=== PATIENT | female | born 1985 | race Caucasian/White ===

== ENCOUNTER 2017-01-06 13:38 | Emergency (ER) | payer OTHER, SELFPAY ==
[2017-01-06] MEDS ORDERED: BENADRYL 50 MG/ML ONE (13:47)
[2017-01-06] MEDS ORDERED: Pepcid 20 MG VIAL IV ONE ×2 (13:47→13:54)
[2017-01-06] MEDS ORDERED: BENADRYL 50 MG/ML IV ONE (13:54)
--- NOTE | 2017-01-06 13:55 | ERPHSYRPT ---
- History of Present Illness Time Seen by Provider: 01/06/17 13:51 Source: patient Exam Limitations: no limitations Patient Subjective Stated Complaint: pt reports taking a new medicine-states she is having trouble breathing-trouble [id number] reports taking the last pill last night-s/s began herminia 1 hr ago Triage Nursing Assessment: pt flushed warm et dry-a & o x 3-resp nonlabored- speaking in complete senenteces with ease-no swelling noted at this time-no salivating noted-pt very anxious upon arrival Physician History: pt reports taking a new medicine-states she is having trouble breathing-trouble [id number] reports taking the last pill last night-s/s began herminia 1 hr ago Timing/Duration: today Associated Symptoms: denies symptoms Allergies/Adverse Reactions: Penicillins Allergy (Verified 01/06/17 13:47) Sulfa (Sulfonamide Antibiotics) Allergy (Verified 01/06/17 13:47) Home Medications: Alprazolam 0.25 mg [xanAX 0.25 MG] 0.25 mg PO .PRN 11/09/15 [History] Cyclobenzaprine HCl [Flexeril] 10 mg PO HS 11/09/15 [History] Sertraline HCl 50 mg [Zoloft 50 mg Tablet] 50 mg PO HSPRN PRN 01/10/16 [ History] Omeprazole 40 mg PO DAILY 01/06/17 [History] Hx Tetanus, Diphtheria Vaccination/Date Given: Yes Hx Influenza Vaccination/Date Given: No Hx Pneumococcal Vaccination/Date Given: No Immunizations Up to Date: Yes - Review of Systems Constitutional: No Fever, No Chills Eyes: No Symptoms Ears, Nose, & Throat: No Symptoms, Mouth Swelling, Painful Swallowing Respiratory: No Cough, No Dyspnea Cardiac: No Chest Pain, No Edema, No Syncope Abdominal/Gastrointestinal: No Abdominal Pain, No Nausea, No Vomiting, No Diarrhea Genitourinary Symptoms: No Dysuria Musculoskeletal: No Back Pain, No Neck Pain Skin: No Rash Neurological: No Dizziness, No Focal Weakness, No Sensory Changes Psychological: No Symptoms Endocrine: No Symptoms All Other Systems: Reviewed and Negative - Past Medical History Pertinent Past Medical History: Yes Neurological History: No Pertinent History Cardiac History: No Pertinent History Respiratory History: No Pertinent History Endocrine Medical History: No Pertinent History Musculoskeletal History: Other Psycho-Social History: Depression Other Medical History: 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 - Past Surgical History Past Surgical History: Yes Gastrointestinal: Cholecystectomy Female Surgical History: Other Other Surgical History: t & a, ablasion - Social History Smoking Status: Current every day smoker How long have you smoked: yrs Exposure to second hand smoke: Yes Drug Use: none Patient Lives Alone: No - Female History Hx Last Menstrual Period: ablasion - Nursing Vital Signs Nursing Vital Signs: Initial Vital Signs Temperature 98.3 F Temperature Source Oral Pulse Rate 99 Respiratory Rate 22 Blood Pressure [Right Arm] 119/81 Pain Intensity 0 - Physical Exam General Appearance: no apparent distress, alert Eye Exam: PERRL/EOMI, eyes nml inspection Ears, Nose, Throat Exam: normal ENT inspection, TMs normal, pharynx normal, moist mucous membranes Neck Exam: normal inspection, non-tender, supple, full range of motion Respiratory Exam: normal breath sounds, lungs clear, No respiratory distress Cardiovascular Exam: regular rate/rhythm, normal heart sounds, normal peripheral pulses Gastrointestinal/Abdomen Exam: soft, normal bowel sounds, No tenderness, No mass Back Exam: normal inspection, normal range of motion, No CVA tenderness, No vertebral tenderness Extremity Exam: normal inspection, normal range of motion, pelvis stable Neurologic Exam: alert, oriented x 3, cooperative, normal mood/affect, nml cerebellar function, nml station & gait, sensation nml, No motor deficits Skin Exam: normal color, warm, dry, No rash Lymphatic Exam: No adenopathy SpO2: 100 Oxygen Delivery: Room Air - Course Nursing assessment & vital signs reviewed: Yes Ordered Tests: Medication Summary Discontinued Medications Generic Name Dose Route Start Last Admin Trade Name Freq PRN Reason Stop Dose Admin Diphenhydramine HCl Confirm 01/06/17 13:47 Benadryl 50 Mg/Ml Administered 01/06/17 13:48 Dose 50 mg .ROUTE .STK-MED ONE Famotidine Confirm 01/06/17 13:47 Pepcid 20 Mg Vial Administered 01/06/17 13:48 Dose 20 mg IV .STK-MED ONE - Progress Progress: improved Counseled pt/family regarding: diagnosis, need for follow-up - Departure Time of Disposition: 13:52 Departure Disposition: Home Clinical Impression: Drug side effects, NSAIDs adverse reaction Condition: Stable Critical Care Time: No Referrals: YAEL GREEN [Primary Care Provider] - Instructions: Adverse Drug Reaction -- Allergic Additional Instructions: ALLERGIC REACTION 1. There are several different reasons for the cause of an allergic reaction. If you are aware of a trigger, continue to avoid the problem. 2. If at any time you experience any of these signs or symptoms, you should seek medical attention immediately: A. Sudden onset of rash B. Wheezing C. Shortness of breath D. Thick tongue E. Dizziness 3. If you experience an allergic reaction and are treated in the emergency department, you should follow up with your family physician in order to determine how you will need to handle your allergy. Please follow the instructions given to you. Please take your medication as prescribed if given. If symptoms recur or get worse, come back to the emergency room if you cannot reach your primary care physician, or call your primary care physician for an appointment. Again if your symptoms get worse, come back to the emergency room. Thanks for visiting emergency room, and let us take care of you. Prescriptions: Diphenhydramine HCl 25 mg [Benadryl 25 mg Capsule] 25 mg PO Q4H PRN PRN # 20 capsule PRN Reason: Allergies Famotidine 20 mg [Pepcid 20 MG] 20 mg PO BID #10 tablet
[2017-01-06 14:15] VITALS: BP 120/79; PULSE 88; O2SAT 99
== END 2017-01-06 14:07 | disposition home or self-care (01) ==
LOC: ED 13:38
DX: R06.02 Shortness of breath (principal); R13.10 Dysphagia, unspecified; L50.9 Urticaria, unspecified; T39.395A Adverse effect of other nonsteroidal anti-inflammatory drugs [NSAID], initial encounter
CPT/HCPCS: 36000; 96374; 96375; 99284; J1200

== ENCOUNTER 2017-03-29 15:35 | Emergency (ER) | payer OTHER | END 2017-03-29 16:42 | disposition left against medical advice (07) | LOC: ED 15:35 | DX: Z53.9 Procedure and treatment not carried out, unspecified reason (principal) ==

== ENCOUNTER 2018-05-06 18:28 | Emergency (ER) | payer OTHER ==
[2018-05-06 18:43] VITALS: BP 113/74; PULSE 108; O2SAT 99
--- NOTE | 2018-05-06 19:20 | ERPHSYRPT ---
- History of Present Illness Time Seen by Provider: 05/06/18 19:17 Source: patient Exam Limitations: no limitations Patient Subjective Stated Complaint: Pt states "I was moving an air conditioner and it slipped and smashed my hand between the air conditioner and the chair." Triage Nursing Assessment: Pt alert and oriented X 3, skin pwd. PT ambulates with an upright steady gait, able to speak in clear full sentences. PT second knuckle on her right hand swollen, bruised, CSM X 4 Physician History: Pt states, she was carrying an air conditioner unit, and bumped her right hand against a chair. She denies fall, other injury or complaints. Occurred: just prior to arrival Method of Injury: direct blow Quality: constant Severity of Pain-Max: moderate Severity of Pain-Current: moderate Extremities Pain Location: hand: right Modifying Factors: Improves With: movement Associated Symptoms: none Allergies/Adverse Reactions: Penicillins Allergy (Verified 01/06/17 13:47) Sulfa (Sulfonamide Antibiotics) Allergy (Verified 01/06/17 13:47) Home Medications: Alprazolam 0.25 mg [xanAX 0.25 MG] 0.25 mg PO .PRN 11/09/15 [History] Sertraline HCl 50 mg [Zoloft 50 mg Tablet] 50 mg PO HSPRN PRN 01/10/16 [ History] Omeprazole 40 mg PO DAILY 01/06/17 [History] Sucralfate 1 g PO DAILY 05/06/18 [History] Hx Tetanus, Diphtheria Vaccination/Date Given: No Hx Influenza Vaccination/Date Given: No Hx Pneumococcal Vaccination/Date Given: No Immunizations Up to Date: Yes - Review of Systems Constitutional: No Symptoms Musculoskeletal: Other (right hand pain) All Other Systems: Reviewed and Negative - Past Medical History Pertinent Past Medical History: Yes Neurological History: No Pertinent History Cardiac History: No Pertinent History Respiratory History: No Pertinent History Endocrine Medical History: No Pertinent History Musculoskeletal History: Other Psycho-Social History: Depression Other Medical History: 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 - Past Surgical History Past Surgical History: Yes Gastrointestinal: Cholecystectomy Female Surgical History: Other Other Surgical History: t & a, ablasion - Social History Smoking Status: Current every day smoker How long have you smoked: 1 year Exposure to second hand smoke: Yes Drug Use: none Patient Lives Alone: No - Female History Hx Last Menstrual Period: ablasion Hx Now: No - Nursing Vital Signs Nursing Vital Signs: Initial Vital Signs Temperature 99.0 F 05/06/18 18:37 Pulse Rate 108 H 05/06/18 18:37 Respiratory Rate 18 05/06/18 18:37 Blood Pressure 113/74 05/06/18 18:37 O2 Sat by Pulse Oximetry 99 05/06/18 18:37 Pain Scale Pain Intensity 4 - Physical Exam General Appearance: no apparent distress Eyes, Ears, Nose, Throat Exam: normal ENT inspection Neck Exam: normal inspection, non-tender Cardiovascular/Respiratory Exam: chest non-tender, normal breath sounds, regular rate/rhythm, heart sounds normal Abdominal Exam: non-tender, soft Hand Exam: normal ROM, soft tissue tenderness (dorsal hand in 2-3 MP areas, normal distal capillary refills and sensation.), No deformity, No ecchymosis, No laceration Neuro/Tendon Exam: normal sensation, normal motor functions Mental Status Exam: alert, oriented x 3 Skin Exam: normal color, warm, dry SpO2 Interpretation: normal SpO2: 99 Oxygen Delivery: Room Air - Course Nursing assessment & vital signs reviewed: Yes - Radiology Exams Right Hand X-ray Interpretation: Interpreted by me, Negative Ordered Tests: Active Orders 24 hr Category Date Time Status HAND (MINIMUM 3 VIEWS) Stat Exams 05/06/18 19:08 Taken - Progress Progress: unchanged Progress Note: 05/06/18 19:37 I explained the X ray findings, no fracture or dislocation noted, discharged with instructions to rest with elevated hand x 2-3 days, apply ice to swelling, return if severe pain or discoloration of the fingers. Counseled pt/family regarding: diagnosis, need for follow-up, rad results - Departure Time of Disposition: 19:38 Departure Disposition: Home Clinical Impression: Hand contusion Qualifiers: Encounter type: initial encounter Laterality: right Qualified Code(s): S60.221A - Contusion of right hand, initial encounter Condition: Stable Critical Care Time: No Referrals: YAEL GREEN [Primary Care Provider] - Instructions: Hand Pain (DC) Additional Instructions: Rest x 2-3 days with elevated hand, apply ice or cold compresses to swelling, return if severe pain, swelling, discoloration of the fingers!
--- NOTE | 2018-05-07 08:34 | XRAY ---
Indication: Pain and swelling following injury. Comparison: None 3 views of the right hand obtained. No bony, articular, or soft tissue abnormalities.
== END 2018-05-06 20:03 | disposition home or self-care (01) ==
LOC: ED 18:28
DX: S60.221A Contusion of right hand, initial encounter (principal); W23.0XXA Caught, crushed, jammed, or pinched between moving objects, initial encounter; F32.9 Major depressive disorder, single episode, unspecified; Z79.899 Other long term (current) drug therapy; Z72.0 Tobacco use
CPT/HCPCS: 73130; 99283

== ENCOUNTER 2019-11-13 08:27 | Emergency (ER) | payer OTHER ==
[2019-11-13 08:59] VITALS: O2SAT 98
--- NOTE | 2019-11-13 09:14 | ERPHSYRPT ---
- History of Present Illness Time Seen by Provider: 11/13/19 08:50 Historian: patient Exam Limitations: no limitations Patient Subjective Stated Complaint: Pt states that about 2 weeks ago she was having lower left back pain and then that went away after a couple of days and then she began feeling crampy last night and today she can't stand up straigt due to lower olinda abdominal pain and urinating frequency but not having much output, rates pain 8-9/10 Triage Nursing Assessment: Pt brought to the ER by her mother, vitals wnl, rates pain 8-9/10, pulses normal, skin N/W/D, afebrile, unable to stand upright Physician History: 34 y/o white female presents with initial left flank pain 2 weeks ago then last night and suddenly worse this am pain in left suprapubic region. left flank pain improved. pt has had a btl in past. no n/v/d. no vaginal bleeding or discharge. no rectal bleeding Timing/Duration: intermittent, worse Quality: sharpness, stabbing Abdominal Pain Onset Location: suprapubic (left) Pain Radiation: groin (left) Severity of Pain-Max: moderate Severity of Pain-Current: moderate Modifying Factors: Improves With: nothing Associated Symptoms: nausea Previous symptoms: no prior history Allergies/Adverse Reactions: Penicillins Allergy (Verified 11/13/19 08:45) Sulfa (Sulfonamide Antibiotics) Allergy (Verified 11/13/19 08:45) Home Medications: Alprazolam 0.25 mg [xanAX 0.25 MG] 0.25 mg PO .PRN 11/09/15 [History] Sertraline HCl 50 mg [Zoloft 50 mg Tablet] 50 mg PO HSPRN PRN 01/10/16 [ History] Omeprazole 40 mg PO DAILY 01/06/17 [History] Sucralfate 1 g PO DAILY 05/06/18 [History] Hx Tetanus, Diphtheria Vaccination/Date Given: No Hx Influenza Vaccination/Date Given: No Hx Pneumococcal Vaccination/Date Given: No - Review of Systems Constitutional: No Symptoms Eyes: No Symptoms Ears, Nose, & Throat: No Symptoms Respiratory: No Symptoms Cardiac: No Symptoms Abdominal/Gastrointestinal: No Symptoms Genitourinary Symptoms: No Symptoms Musculoskeletal: No Symptoms Skin: No Symptoms Neurological: No Symptoms Psychological: No Symptoms Endocrine: No Symptoms Hematologic/Lymphatic: No Symptoms Immunological/Allergic: No Symptoms All Other Systems: Reviewed and Negative - Past Medical History Pertinent Past Medical History: Yes Neurological History: No Pertinent History Cardiac History: No Pertinent History Respiratory History: No Pertinent History Endocrine Medical History: No Pertinent History Musculoskeletal History: No Pertinent History Psycho-Social History: Depression Other Medical History: 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 - Past Surgical History Past Surgical History: Yes Gastrointestinal: Cholecystectomy Female Surgical History: Other Other Surgical History: t & a, ablasion - Social History Smoking Status: Former smoker How long have you smoked: 1 year Exposure to second hand smoke: Yes Drug Use: none Patient Lives Alone: No - Female History Hx Now: No (tubal and ablasion) - Nursing Vital Signs Nursing Vital Signs: Initial Vital Signs Temperature 97.7 F 11/13/19 08:33 Pulse Rate 86 11/13/19 08:33 Blood Pressure 123/66 11/13/19 08:33 O2 Sat by Pulse Oximetry 98 11/13/19 08:33 Pain Scale Pain Intensity 6 - Physical Exam General Appearance: mild distress, alert, anxiety Eye Exam: PERRL/EOMI, eyes nml inspection Ears, Nose, Throat Exam: normal ENT inspection, moist mucous membranes Neck Exam: normal inspection, non-tender, supple, full range of motion Respiratory Exam: normal breath sounds, lungs clear, airway intact, No chest tenderness, No respiratory distress Cardiovascular Exam: regular rate/rhythm, normal heart sounds, normal peripheral pulses Gastrointestinal/Abdomen Exam: soft, normal bowel sounds, tenderness, guarding ( left suprapubic) Pelvic Exam: not done Rectal Exam: not done Back Exam: normal inspection, normal range of motion, No CVA tenderness, No vertebral tenderness Extremity Exam: normal inspection, normal range of motion, pelvis stable Neurologic Exam: alert, oriented x 3, cooperative, storage battery charger II-XII nml as tested Skin Exam: normal color, warm, dry Lymphatic Exam: No adenopathy SpO2 Interpretation: normal SpO2: 98 O2 Delivery: Room Air - Course Nursing assessment & vital signs reviewed: Yes Ordered Tests: Active Orders 24 hr Category Date Time Status IV Insertion STAT Care 11/13/19 09:16 Active ABDOMEN AND PELVIS W/0 CONTRAS [CT] Stat Exams 11/13/19 09:16 Completed CBC W DIFF Stat Lab 11/13/19 09:20 Completed CMP Stat Lab 11/13/19 09:20 Completed UA W/RFX UR CULTURE Stat Lab 11/13/19 09:20 Completed Medication Summary Discontinued Medications Generic Name Dose Route Start Last Admin Trade Name Teddyq PRN Reason Stop Dose Admin Hydromorphone HCl 1 mg 11/13/19 09:16 11/13/19 09:38 Hydromorphone 1 Mg/Ml Ampule IV 11/13/19 09:17 1 mg STAT ONE Administration Hydromorphone HCl Confirm 11/13/19 09:25 Hydromorphone 1 Mg/Ml Ampule Administered 11/13/19 09:26 Dose 1 mg .ROUTE .STK-MED ONE Sodium Chloride 1,000 mls @ 999 mls/hr 11/13/19 09:16 11/13/19 09:37 Sodium Chloride 0.9% 1000 Ml IV 11/13/19 10:16 999 mls/hr .Q1H1M STA Administration Sodium Chloride Confirm 11/13/19 09:25 Sodium Chloride 0.9% 1000 Ml Administered 11/13/19 09:26 Dose 1,000 mls @ ud .ROUTE .STK-MED ONE Ketorolac Tromethamine 30 mg 11/13/19 09:16 11/13/19 09:37 Toradol 30 Mg Injection IV 11/13/19 09:17 30 mg STAT ONE Administration Ketorolac Tromethamine Confirm 11/13/19 09:25 Toradol 30 Mg Injection Administered 11/13/19 09:26 Dose 30 mg .ROUTE .STK-MED ONE Ondansetron HCl 4 mg 11/13/19 09:16 11/13/19 09:38 Zofran 4 Mg/2 Ml Vial IV 11/13/19 09:17 4 mg STAT ONE Administration Ondansetron HCl Confirm 11/13/19 09:25 Zofran 4 Mg/2 Ml Vial Administered 11/13/19 09:26 Dose 4 mg .ROUTE .STK-MED ONE Lab/Rad Data: Laboratory Result Diagrams 11/13/19 09:20 11/13/19 09:20 Laboratory Results 11/13/19 11/13/19 11/13/19 Range/Units 09:20 09:20 09:20 WBC 9.3 (4.0-10.5) K/mm3 RBC 4.56 (4.1-5.4) M/mm3 Hgb 13.8 (12.0-16.0) gm/dl Hct 42.5 (35-47) % MCV 93.2 (78-100) fl MCH 30.3 (26-32) pg MCHC 32.5 (32-36) g/dl RDW 13.1 (11.5-14.0) % Plt Count 241 (150-450) K/mm3 MPV 11.7 H (7.5-11.0) fl Gran % 60.9 (36.0-66.0) % Eos # (Auto) 0.07 (0-0.5) Absolute Lymphs (auto) 2.92 (1.0-4.6) Absolute Monos (auto) 0.62 (0.0-1.3) Lymphocytes % 31.5 (24.0-44.0) % Monocytes % 6.7 (0.0-12.0) % Eosinophils % 0.8 (0.00-5.0) % Basophils % 0.1 (0.0-0.4) % Absolute Granulocytes 5.65 (1.4-6.9) Basophils # 0.01 (0-0.4) Sodium 137 (137-145) mmol/L Potassium 4.4 (3.5-5.1) mmol/L Chloride 109 H (98-107) mmol/L Carbon Dioxide 21 L (22-30) mmol/L Anion Gap 11.5 (5-15) MEQ/L BUN 9 (7-17) mg/dL Creatinine 0.56 (0.52-1.04) mg/dL Estimated GFR > 60.0 ML/MIN Glucose 92 (74-106) mg/dL Calcium 9.3 (8.4-10.2) mg/dL Total Bilirubin 0.60 (0.2-1.3) mg/dL AST 30 (14-36) U/L ALT 32 (0-35) U/L Alkaline Phosphatase 53 (38-126) U/L Serum Total Protein 6.9 (6.3-8.2) g/dL Albumin 4.0 (3.5-5.0) g/dL Urine Color YELLOW (YELLOW) Urine Appearance SLIGHTLY CLOUDY (CLEAR) Urine pH 6.0 (5-6) Ur Specific [place] 1.011 (1.005-1.025) Urine Protein NEGATIVE (Negative) Urine Ketones NEGATIVE (NEGATIVE) Urine Blood SMALL (0-5) Jay/ul Urine Nitrite NEGATIVE (NEGATIVE) Urine Bilirubin NEGATIVE (NEGATIVE) Urine Urobilinogen NEGATIVE (0-1) mg/dL Ur Leukocyte Esterase NEGATIVE (NEGATIVE) Urine WBC (Auto) NONE (0-5) /HPF Urine RBC (Auto) NONE (0-2) /HPF U Hyaline Cast (Auto) 0-2 (0-2) /LPF U Epithel Cells (Auto) RARE (FEW) /HPF Urine Bacteria (Auto) NONE (NEGATIVE) /HPF Amorphous Crystals FEW (NEGATIVE) /HPF Urine Mucus (Auto) SLIGHT (NEGATIVE) /HPF Urine Culture Reflexed NO (NO) Urine Glucose NEGATIVE (NEGATIVE) mg/dL - Progress Progress: improved Progress Note: 11/13/19 10:34 ct abd/pelvis-ruptured ovarian cyst left with physiologic fluid in pelvis. mild fecal stasis Counseled pt/family regarding: lab results, diagnosis, need for follow-up, rad results - Departure Departure Disposition: Home Clinical Impression: Ruptured ovarian cyst Condition: Stable Critical Care Time: Yes Referrals: YAEL GREEN [Primary Care Provider] - Additional Instructions: drink plenty of fluids. tylenol and ibuprofen for pain. follow up with primary doctor for further management
[2019-11-13] MEDS ORDERED: Zofran 4 MG/2 ML VIAL IV ONE (09:16)
[2019-11-13] MEDS ORDERED: Hydromorphone 1 mg/ml Ampule IV ONE (09:16)
[2019-11-13] MEDS ORDERED: TORAdol 30 mg Injection IV ONE (09:16)
[2019-11-13] MEDS ORDERED: Sodium Chloride 0.9% 1000 ML 1,000 ML IV STA (09:16)
[2019-11-13] MEDS ORDERED: TORAdol 30 mg Injection ONE (09:25)
[2019-11-13] MEDS ORDERED: Hydromorphone 1 mg/ml Ampule ONE (09:25)
[2019-11-13] MEDS ORDERED: Sodium Chloride 0.9% 1000 ML 1,000 ML ONE (09:25)
[2019-11-13] MEDS ORDERED: Zofran 4 MG/2 ML VIAL ONE (09:25)
[2019-11-13 09:30] LABS: Absolute Neutrophil Ct (ANC) 5.65 (1.4-6.9); BASOPHIL % 0.1 % (0.0-0.4); Basophil (Absolute #) 0.01 (0-0.4); Eosinophil % 0.8 % (0.00-5.0); Eosinophil (Absolute #) 0.07 (0-0.5); Hematocrit 42.5 % (35-47); Hemoglobin 13.8 gm/dl (12.0-16.0); Lymphocyte (Absolute #) 2.92 (1.0-4.6); Lymphocytes % 31.5 % (24.0-44.0); Mean Cell Volume 93.2 fl (78-100); Mean Corpuscular Hemoglobin 30.3 pg (26-32); Mean Corpuscular Hgb Concent. 32.5 g/dl (32-36); Mean Platelet Volume 11.7 fl (7.5-11.0); Monocyte (Absolute #) 0.62 (0.0-1.3); Monocytes % 6.7 % (0.0-12.0); Neutrophil % 60.9 % (36.0-66.0); Platelet Count 241 K/mm3 (150-450); Red Blood Count 4.56 M/mm3 (4.1-5.4); Red Cell Distribution Width 13.1 % (11.5-14.0); White Blood Count 9.3 K/mm3 (4.0-10.5)
[2019-11-13 09:38] LABS: Amourphous Crystal FEW /HPF (NEGATIVE); Appearance SLIGHTLY CLOUDY (CLEAR); Bilirubin NEGATIVE (NEGATIVE); Blood SMALL Ery/ul (0-5); Epithelial Cells RARE /HPF (FEW); Glucose NEGATIVE (NEGATIVE); Hyaline Casts 0-2 /LPF (0-2); Ketones NEGATIVE (NEGATIVE); Leukocyte Esterase NEGATIVE (NEGATIVE); Mucus SLIGHT /HPF (NEGATIVE); Nitrite NEGATIVE (NEGATIVE); Protein,Urine Dip NEGATIVE (Negative); Specific Gravity 1.011 (1.005-1.025); Urobilinogen NEGATIVE mg/dL (0-1)
--- NOTE | 2019-11-13 09:51 | XRAY ---
Indication: Flank and suprapubic pain. Multiple contiguous axial images obtained through the abdomen and pelvis without contrast as ordered. Comparison: June 15, 2014. Lung bases are clear. Heart is not enlarged. Noncontrasted stomach and bowel loops appear nonobstructed. Normal appendix. There is again mild scattered fecal debris more than before. New small pelvis/cul-de-sac free fluid presumed physiologic from rupture/leaking cyst. No free air. Stable cholecystectomy clips. Remaining liver, pancreas, spleen, adrenal glands, kidneys, ureters, bladder, uterus, and aorta appear unremarkable for noncontrast exam. Osseous structures intact. Impression: 1. New pelvis/cul-de-sac free fluid presumed physiologic. 2. Incidental mild worsening fecal stasis without obstruction. 3. Remaining CT abdomen/pelvis without contrast exam is negative.
[2019-11-13 10:07] LABS: ALKALINE PHOSPHATASE 53 U/L (38-126); ANION GAP 11.5 MEQ/L (5-15); BLOOD UREA NITROGEN 9 mg/dL (7-17); CHLORIDE 109 mmol/L (98-107); Calcium 9.3 mg/dL (8.4-10.2); Carbon Dioxide 21 mmol/L (22-30); Creatinine 1 0.56 mg/dL (0.52-1.04); Glucose 92 mg/dL (74-106); Potassium 4.4 mmol/L (3.5-5.1); SGOT/AST 30 U/L (14-36); SGPT/ALT 32 U/L (0-35); SODIUM 137 mmol/L (137-145); Total Protein 6.9 g/dL (6.3-8.2)
[2019-11-13 10:37] VITALS: BP 130/78; PULSE 69
== END 2019-11-13 10:48 | disposition home or self-care (01) ==
LOC: ED 08:27
DX: N83.202 Unspecified ovarian cyst, left side (principal)
CPT/HCPCS: 36000; 36415; 74176; 80053; 81001; 85025; 96360; 96374; 96375; 99284; J1170; J1885; J2405

== ENCOUNTER 2020-07-05 05:52 | Day surgery (SDC) | payer OTHER ==
[2020-07-05] MEDS ORDERED: Lactated Ringers 1,000 ML IV ONE (06:17)
[2020-07-05] MEDS ORDERED: Lactated Ringers 1,000 ML IV SCH (06:30)
[2020-07-05] MEDS ORDERED: DIPRIVAN 200 MG/20 ML IV ONE (07:21)
[2020-07-05] MEDS ORDERED: Ketamine HCl 50 MG/ML ONE (07:22)
[2020-07-05] MEDS ORDERED: Xylocaine-Mpf 2% 5 Ml Vial ONE (07:25)
[2020-07-05 08:37] VITALS: O2SAT 100
[2020-07-05 08:45] VITALS: BP 111/74; PULSE 97
--- NOTE | 2020-07-05 13:58 | OP ---
SURGERY DATE/TIME: 07/05/2020 0725 PREOPERATIVE DIAGNOSES: 1) Epigastric pain. 2) Rectal bleeding. 3) Bright red stools. POSTOPERATIVE DIAGNOSES: PROCEDURES: 1) Esophagogastroduodenoscopy. 2) Colonoscopy. SURGEON: Dr. Jean. ANESTHESIA: Medications were given by the anesthesia department. HISTORY: The patient is a 34 year old white female who reports she had her gallbladder removed ten years ago and she has been having problems with abdominal pain since that time. It was discovered the patient does take naproxen on a regular basis for hip pain. The patient was complaining of increasing epigastric pain. She also reports normal for her four loose stools a day and she has been recently having rectal bleeding as well which has been bright red in nature. The patient was felt the need to have endoscopic evaluation. She was appraised of the risks of the procedure including the risk of perforation, phlebitis, untoward reaction to medication, bleeding and missed lesions. The patient verbalized her understanding and desired to have the procedure performed. DESCRIPTION OF PROCEDURE: The patient was given the medications by the anesthesia department. She had continuous pulse oximetry, ECG monitoring, intermittent blood pressure monitoring and tidal CO2 monitoring during the examination. She was placed in the left lateral decubitus position. A bite block was placed and the flexible Olympus gastroscope was used to intubate the oropharynx. The esophagus is easily intubated and appeared to be normal throughout its length. The stomach was entered where normal gastric rugal folds were seen and these distended nicely with insufflation of air. The scope was passed along the greater curvature of the stomach to the antrum. The pylorus encountered and intubated. The duodenum inspected and found to be normal. The scope is withdrawn towards the stomach. A retroflex view was obtained of the lesser curvature, fundus and cardia regions of the stomach. There was no hiatal hernia present. The scope was then redirected towards the gastric antrum. Biopsies were obtained using cold forceps biopsies to determine whether there was any underlying Helicobacter pylori. The scope was then removed from the patient. Next, a digital rectal examination was performed and revealed normal anal sphincter tone and no masses. The flexible Olympus pediatric colonoscope was used to intubate the rectum. A view of the colon was developed sequentially to the cecum. Photo documentation of the ileocecal valve and appendiceal orifice obtained. Upon insertion and withdrawal, including a retroflex view in the rectum, no mucosal lesions were encountered. The scope was removed from the patient who tolerated the procedure well and was sent back to OP recovery in good condition. The prep was noted to be fair to good with clear liquid stool noted throughout the colon.
== END 2020-07-05 08:55 | disposition home or self-care (01) ==
LOC: SDC 05:52
PROVIDERS: ATTEND Family Medicine
DX: K29.70 Gastritis, unspecified, without bleeding (principal); R10.13 Epigastric pain; K62.5 Hemorrhage of anus and rectum
CPT/HCPCS: 88305; J2704

== ENCOUNTER 2022-04-18 13:09 | Emergency (ER) | payer OTHER ==
[2022-04-18] MEDS ORDERED: Zofran 4 MG/2 ML VIAL IV ONE (13:32)
[2022-04-18] MEDS ORDERED: TORAdol 30 mg Injection IV ONE (13:32)
[2022-04-18] MEDS ORDERED: TYLENOL 325 MG PO ONE (13:32)
[2022-04-18] MEDS ORDERED: Sodium Chloride 0.9% 1000 ML 1,000 ML IV STA (13:32)
[2022-04-18] MEDS ORDERED: TYLENOL 325 MG ONE (13:37)
[2022-04-18] MEDS ORDERED: TORAdol 30 mg Injection ONE (13:37)
[2022-04-18] MEDS ORDERED: Zofran 4 MG/2 ML VIAL ONE (13:37)
[2022-04-18] MEDS ORDERED: Sodium Chloride 0.9% 1000 ML 1,000 ML ONE (13:37)
[2022-04-18 13:51] LABS: Basophil (Absolute #) 0.03 x10^3/uL (0-0.4); Eosinophil % 0.5 % (0.00-5.0); Eosinophil (Absolute #) 0.04 x10^3/uL (0-0.5); Hematocrit 40.1 % (35-47); Hemoglobin 12.7 g/dL (12.0-16.0); Lymphocyte (Absolute #) 2.36 x10^3/uL (1.0-4.6); Lymphocytes % 31.5 % (24.0-44.0); Mean Cell Volume 92.6 fL (78-100); Mean Corpuscular Hemoglobin 29.3 pg (26-32); Mean Corpuscular Hgb Concent. 31.7 g/dL (32-36); Mean Platelet Volume 10.4 fL (7.5-11.0); Monocyte (Absolute #) 0.46 x10^3/uL (0.0-1.3); Monocytes % 6.1 % (0.0-12.0); Neutrophil % 61.4 % (36.0-66.0); Platelet Count 307 x10^3/uL (150-450); Red Blood Count 4.33 x10^6/uL (4.1-5.4); Red Cell Distribution Width 12.4 % (11.5-14.0); White Blood Count 7.5 x10^3/uL (4.0-10.5)
[2022-04-18 13:59] LABS: ALKALINE PHOSPHATASE 50 U/L (38-126); ANION GAP 12.1 MEQ/L (5-15); BLOOD UREA NITROGEN 5 mg/dL (7-17); CHLORIDE 107 mmol/L (98-107); Calcium 8.8 mg/dL (8.4-10.2); Carbon Dioxide 23 mmol/L (22-30); Creatinine 1 0.57 mg/dL (0.52-1.04); EST GLOMERULAR FILTRATION RATE > 60.0 ML/MIN; Glucose 109 mg/dL (74-106); LIPASE 71 U/L (23-300); Potassium 3.7 mmol/L (3.5-5.1); SGOT/AST 25 U/L (14-36); SGPT/ALT 20 U/L (0-35); SODIUM 138 mmol/L (137-145); Total Protein 6.9 g/dL (6.3-8.2)
[2022-04-18 14:03] LABS: Appearance CLEAR (CLEAR); Bilirubin NEGATIVE (NEGATIVE); Dipstick done @ ? MAIN LAB; Epithelial Cells RARE /HPF (FEW); Glucose NEGATIVE (NEGATIVE); Ketones NEGATIVE (NEGATIVE); Mucus SLIGHT /HPF (NEGATIVE); Nitrite NEGATIVE (NEGATIVE); Ph 5.5 (5-6); Protein,Urine Dip NEGATIVE (Negative); RBC TRACE NON-HEM Ery/ul (0-5); Specific Gravity 1.025 (1.005-1.025); Urobilinogen 0.2 mg/dL (0-1)
[2022-04-18 14:04] LABS: Bacteria NONE SEEN /HPF (NEGATIVE)
[2022-04-18 14:05] LABS: Urine Cultured Indicated? NO
[2022-04-18 14:12] VITALS: BP 113/76; PULSE 88; O2SAT 100
--- NOTE | 2022-04-18 15:00 | XRAY ---
Indication: Right lower quadrant pain and nausea. History ovarian cysts. Multiple contiguous axial images obtained through the abdomen and pelvis using 80 cc Isovue 370 contrast. Comparison: November 13, 2019. Lung bases remain clear. Heart not enlarged. Noncontrasted stomach and bowel loops nonobstructed again with normal appendix. Again previous cholecystectomy. No free fluid/air. Remaining liver, pancreas, spleen, adrenal glands, kidneys, ureters, bladder, uterus, and aorta are unremarkable. No pathologic retroperitoneal lymphadenopathy. Osseous structures intact. Impression: Continued negative CT abdomen/pelvis with contrast exam.
--- NOTE | 2022-04-18 15:03 | ERPHSYRPT ---
- History of Present Illness Time Seen by Provider: 04/18/22 13:13 Historian: patient Exam Limitations: no limitations Patient Subjective Stated Complaint: pt here for right sided abd pain since yesterday. no other co's Triage Nursing Assessment: pt alert, anxious, resp easy, face mask in place, skin w/d/p, abd tender to right side, bs heard Physician History: Patient has right lower quadrant pain today. Patient states pain began yesterday. She states that she saw her nurse practitioner this morning. They sent her over here for evaluation for appendicitis. Patient also has a history of ovarian cysts. Patient states that she has had bilateral tubal ligation. However she still has her ovaries. No falls no trauma. Denies any new or different drug use. Timing/Duration: yesterday Activities at Onset: activity Quality: cramping, pressure Abdominal Pain Onset Location: RLQ Pain Radiation: no radiation Severity of Pain-Max: mild Severity of Pain-Current: mild Modifying Factors: Improves With: analgesics Associated Symptoms: denies symptoms Previous symptoms: same symptoms as today, other (Previous ovarian cyst) Allergies/Adverse Reactions: Penicillins Allergy (Verified 04/18/22 13:21) Hives Sulfa (Sulfonamide Antibiotics) Allergy (Verified 04/18/22 13:21) Hives Home Medications: ALPRAZolam 0.25 MG [xanAX 0.25 MG] 0.25 mg PO .PRN PRN 11/09/15 [History] Omeprazole 40 mg PO DAILY 01/06/17 [History] Cyclobenzaprine HCl 10 mg [Cyclobenzaprine 10 MG] 1 ea DAILY 04/18/22 [History] Hx Tetanus, Diphtheria Vaccination/Date Given: No Hx Influenza Vaccination/Date Given: No Hx Pneumococcal Vaccination/Date Given: No Immunizations Up to Date: Yes Travel Risk - International Travel Have you traveled outside of the country in past 3 weeks: No - Coronavirus Screening Are you exhibiting any of the following symptoms?: No - Vaccine Status Have you recieved a Covid-19 vaccination: No - Review of Systems Constitutional: No Fever, No Chills Eyes: No Symptoms Ears, Nose, & Throat: No Symptoms Respiratory: No Cough, No Dyspnea Cardiac: No Chest Pain, No Edema, No Syncope Abdominal/Gastrointestinal: Abdominal Pain, No Nausea, No Vomiting, No Diarrhea Genitourinary Symptoms: No Dysuria Musculoskeletal: No Back Pain, No Neck Pain Skin: No Rash Neurological: No Dizziness, No Focal Weakness, No Sensory Changes Psychological: No Symptoms Endocrine: No Symptoms All Other Systems: Reviewed and Negative - Past Medical History Pertinent Past Medical History: Yes Neurological History: No Pertinent History ENT History: No Pertinent History Cardiac History: No Pertinent History Respiratory History: No Pertinent History Endocrine Medical History: No Pertinent History Musculoskeletal History: No Pertinent History GI Medical History: GERD, Gallbladder Disease, Ulcer History: No Pertinent History Psycho-Social History: Depression Female Reproductive Disorders: No Pertinent History Other Medical History: HX OF LEFT SHOULDER, ELBOW, AND HAND SURGERIES - Past Surgical History Past Surgical History: Yes Neuro Surgical History: No Pertinent History Cardiac: No Pertinent History Respiratory: No Pertinent History Gastrointestinal: Cholecystectomy Genitourinary: No Pertinent History Musculoskeletal: No Pertinent History Female Surgical History: No Pertinent History Other Surgical History: t & a, uterine ablation,Left shoulder debridement,Left carpal tunnel,Left elbow nerve ? 2 previous colonoscopies. - Social History Smoking Status: Former smoker How long have you smoked: 1 year Exposure to second hand smoke: Yes Drug Use: none Patient Lives Alone: No - Female History Hx Last Menstrual Period: albation Hx Now: No - Nursing Vital Signs Nursing Vital Signs: Initial Vital Signs Temperature 98.0 F 04/18/22 13:15 Pulse Rate 109 H 04/18/22 13:15 Respiratory Rate 18 04/18/22 13:15 Blood Pressure 125/78 04/18/22 13:15 O2 Sat by Pulse Oximetry 97 04/18/22 13:15 Pain Scale Pain Intensity 5 - Physical Exam General Appearance: no apparent distress, alert Eye Exam: PERRL/EOMI, eyes nml inspection Ears, Nose, Throat Exam: normal ENT inspection, pharynx normal, moist mucous membranes Neck Exam: normal inspection, non-tender, supple, full range of motion Respiratory Exam: normal breath sounds, lungs clear, No respiratory distress Cardiovascular Exam: regular rate/rhythm, normal heart sounds Gastrointestinal/Abdomen Exam: soft, tenderness, other (Right lower quadrant tenderness without rebound or guarding.), No mass Back Exam: normal inspection, normal range of motion, No CVA tenderness, No vertebral tenderness Extremity Exam: normal inspection, normal range of motion, pelvis stable Neurologic Exam: alert, oriented x 3, cooperative, normal mood/affect, nml cerebellar function, sensation nml, No motor deficits Skin Exam: normal color, warm, dry SpO2: 100 - Course Nursing assessment & vital signs reviewed: Yes EKG Interpreted by Me: Sinus Rhythm Ordered Tests: Active Orders 24 hr Category Date Time Status EKG-ER Only STAT Care 04/18/22 13:32 Active IV Insertion STAT Care 04/18/22 13:32 Active ABDOMEN AND PELVIS W CONTRAST [CT] Stat Exams 04/18/22 13:33 Completed CBC W DIFF Stat Lab 04/18/22 13:44 Completed CMP Stat Lab 04/18/22 13:44 Completed HCG,QUALITATIVE URINE Stat Lab 04/18/22 13:34 Completed LIPASE Stat Lab 04/18/22 13:44 Completed UA W/RFX CULTURE Stat Lab 04/18/22 13:52 Completed Medication Summary Discontinued Medications Generic Name Dose Route Start Last Admin Trade Name Freq PRN Reason Stop Dose Admin Acetaminophen 975 mg 04/18/22 13:32 04/18/22 13:40 Acetaminophen 325 Mg Tablet PO 04/18/22 13:33 975 mg STAT ONE Administration Acetaminophen Confirm 04/18/22 13:37 Acetaminophen 325 Mg Tablet Administered 04/18/22 13:38 Dose 975 mg .ROUTE .STK-MED ONE Sodium Chloride 1,000 mls @ 999 mls/hr 04/18/22 13:32 04/18/22 14:42 Sodium Chloride 0.9% 1000 Ml IV 04/18/22 14:32 Infused .Q1H1M STA Infusion Sodium Chloride Confirm 04/18/22 13:37 Sodium Chloride 0.9% 1000 Ml Administered 04/18/22 13:38 Dose 1,000 mls @ ud .ROUTE .STK-MED ONE Ketorolac Tromethamine 30 mg 04/18/22 13:32 04/18/22 13:40 Ketorolac Tromethamine 30 Mg/Ml Inj IV 04/18/22 13:33 30 mg STAT ONE Administration Ketorolac Tromethamine Confirm 04/18/22 13:37 Ketorolac Tromethamine 30 Mg/Ml Inj Administered 04/18/22 13:38 Dose 30 mg .ROUTE .STK-MED ONE Ondansetron HCl 4 mg 04/18/22 13:32 04/18/22 13:40 Ondansetron Hcl 4 Mg/2 Ml Vial IV 04/18/22 13:33 4 mg STAT ONE Administration Ondansetron HCl Confirm 04/18/22 13:37 Ondansetron Hcl 4 Mg/2 Ml Vial Administered 04/18/22 13:38 Dose 4 mg .ROUTE .STK-MED ONE Lab/Rad Data: Laboratory Result Diagrams 04/18/22 13:44 04/18/22 13:44 Laboratory Results 04/18/22 04/18/22 04/18/22 Range/Units 13:52 13:44 13:44 WBC 7.5 (4.0-10.5) x10^3/uL RBC 4.33 (4.1-5.4) x10^6/uL Hgb 12.7 (12.0-16.0) g/dL Hct 40.1 (35-47) % MCV 92.6 (78-100) fL MCH 29.3 (26-32) pg MCHC 31.7 L (32-36) g/dL RDW 12.4 (11.5-14.0) % Plt Count 307 (150-450) x10^3/uL MPV 10.4 (7.5-11.0) fL Gran % 61.4 (36.0-66.0) % Immature Gran % (Auto) 0.1 (0.00-0.4) % Nucleat RBC Rel Count 0.0 (0.00-0.1) % Eos # (Auto) 0.04 (0-0.5) x10^3/uL Immature Gran # (Auto) 0.01 (0.00-0.03) x10^3u/L Absolute Lymphs (auto) 2.36 (1.0-4.6) x10^3/uL Absolute Monos (auto) 0.46 (0.0-1.3) x10^3/uL Absolute Nucleated RBC 0.00 (0.00-0.01) x10^3u/L Lymphocytes % 31.5 (24.0-44.0) % Monocytes % 6.1 (0.0-12.0) % Eosinophils % 0.5 (0.00-5.0) % Basophils % 0.4 (0.0-0.4) % Absolute Granulocytes 4.60 (1.4-6.9) x10^3/uL Basophils # 0.03 (0-0.4) x10^3/uL Sodium 138 (137-145) mmol/L Potassium 3.7 (3.5-5.1) mmol/L Chloride 107 (98-107) mmol/L Carbon Dioxide 23 (22-30) mmol/L Anion Gap 12.1 (5-15) MEQ/L BUN 5 L (7-17) mg/dL Creatinine 0.57 (0.52-1.04) mg/dL Estimated GFR > 60.0 ML/MIN Glucose 109 H (74-106) mg/dL Calcium 8.8 (8.4-10.2) mg/dL Total Bilirubin 0.40 (0.2-1.3) mg/dL AST 25 (14-36) U/L ALT 20 (0-35) U/L Alkaline Phosphatase 50 (38-126) U/L Serum Total Protein 6.9 (6.3-8.2) g/dL Albumin 4.0 (3.5-5.0) g/dL Lipase 71 (23-300) U/L Urinalys Dipstick Clnc MAIN LAB Urine Color YELLOW (YELLOW) Urine Appearance CLEAR (CLEAR) Urine pH 5.5 (5-6) Ur Specific [place] 1.025 (1.005-1.025) POC Urine Protein Conf NEGATIVE (Negative) Urine Ketones NEGATIVE (NEGATIVE) Urine Nitrite NEGATIVE (NEGATIVE) Urine Bilirubin NEGATIVE (NEGATIVE) Urine Urobilinogen 0.2 (0-1) mg/dL Urine Leukocytes NEGATIVE (NEGATIVE) Urine WBC (Auto) NONE (0-5) /HPF Urine RBC (Auto) NONE (0-2) /HPF U Epithel Cells (Auto) RARE (FEW) /HPF Urine Bacteria (Auto) NONE SEEN (NEGATIVE) /HPF Urine RBC TRACE NON-HEM (0-5) Jay/ul Urine Mucus (Auto) SLIGHT (NEGATIVE) /HPF Ur Culture Indicated? NO Urine Glucose NEGATIVE (NEGATIVE) mg/dL Urine HCG, Qual (Negative) 04/18/22 Range/Units 13:34 WBC (4.0-10.5) x10^3/uL RBC (4.1-5.4) x10^6/uL Hgb (12.0-16.0) g/dL Hct (35-47) % MCV (78-100) fL MCH (26-32) pg MCHC (32-36) g/dL RDW (11.5-14.0) % Plt Count (150-450) x10^3/uL MPV (7.5-11.0) fL Gran % (36.0-66.0) % Immature Gran % (Auto) (0.00-0.4) % Nucleat RBC Rel Count (0.00-0.1) % Eos # (Auto) (0-0.5) x10^3/uL Immature Gran # (Auto) (0.00-0.03) x10^3u/L Absolute Lymphs (auto) (1.0-4.6) x10^3/uL Absolute Monos (auto) (0.0-1.3) x10^3/uL Absolute Nucleated RBC (0.00-0.01) x10^3u/L Lymphocytes % (24.0-44.0) % Monocytes % (0.0-12.0) % Eosinophils % (0.00-5.0) % Basophils % (0.0-0.4) % Absolute Granulocytes (1.4-6.9) x10^3/uL Basophils # (0-0.4) x10^3/uL Sodium (137-145) mmol/L Potassium (3.5-5.1) mmol/L Chloride (98-107) mmol/L Carbon Dioxide (22-30) mmol/L Anion Gap (5-15) MEQ/L BUN (7-17) mg/dL Creatinine (0.52-1.04) mg/dL Estimated GFR ML/MIN Glucose (74-106) mg/dL Calcium (8.4-10.2) mg/dL Total Bilirubin (0.2-1.3) mg/dL AST (14-36) U/L ALT (0-35) U/L Alkaline Phosphatase (38-126) U/L Serum Total Protein (6.3-8.2) g/dL Albumin (3.5-5.0) g/dL Lipase (23-300) U/L Urinalys Dipstick Clnc Urine Color (YELLOW) Urine Appearance (CLEAR) Urine pH (5-6) Ur Specific [place] (1.005-1.025) POC Urine Protein Conf (Negative) Urine Ketones (NEGATIVE) Urine Nitrite (NEGATIVE) Urine Bilirubin (NEGATIVE) Urine Urobilinogen (0-1) mg/dL Urine Leukocytes (NEGATIVE) Urine WBC (Auto) (0-5) /HPF Urine RBC (Auto) (0-2) /HPF U Epithel Cells (Auto) (FEW) /HPF Urine Bacteria (Auto) (NEGATIVE) /HPF Urine RBC (0-5) Jay/ul Urine Mucus (Auto) (NEGATIVE) /HPF Ur Culture Indicated? Urine Glucose (NEGATIVE) mg/dL Urine HCG, Qual NEGATIVE (Negative) - Progress Progress: improved Progress Note: 04/18/22 15:08 differential diagnosis includes kidney stone, compression fracture, infection, UTI, triple AAA - basic labs including: CBC, lipase, CMP, UA, urine test - insert IV for fluids, pain meds, nausea control - consider imaging: CT ab/pelvis CT scan shows no appendicitis, no free fluid, no obvious ovarian cyst. Patient's pain much improved on reexam. I did discuss risks and benefits of an ultrasound today this would be looking for ovarian torsion or other gynecological issue. Patient states that she will follow-up with her PCP for an outpatient ultrasound. She states she had a more comfortable with this. Patient's mother is in the room. I did my best to answer all questions. Plan for discharge home. - Departure Departure Disposition: Home Clinical Impression: Right lower quadrant abdominal pain Condition: Stable Critical Care Time: No Referrals: OWEN LAMA NP [Primary Care Provider] - Follow up/PCP as directed Instructions: Severe Abdominal Pain, Adult (DC) Prescriptions: Ondansetron ODT 4 MG [Zofran Odt 4 mg] 4 mg PO Q6H PRN PRN #10 tablet PRN Reason: Vomiting
== END 2022-04-18 15:31 | disposition home or self-care (01) ==
LOC: ED 13:09
DX: R10.31 Right lower quadrant pain (principal); Z79.899 Other long term (current) drug therapy; Z28.310 Unvaccinated for COVID-19
CPT/HCPCS: 36000; 36415; 74177; 80053; 81015; 81025; 83690; 85025; 93005; 96374; 96375; 99284; J1885; J2405; A9270-GY

== ENCOUNTER 2024-09-19 14:22 | Emergency (ER) | payer BC, OTHER ==
[2024-09-19 14:49] VITALS: RESP 18; O2SAT 96
--- NOTE | 2024-09-19 15:28 | ERPHSYRPT ---
- History of Present Illness Time Seen by Provider: 09/19/24 14:26 Source: patient, family Exam Limitations: no limitations Patient Subjective Stated Complaint: Twisted left ankle last night, now ankle is swollen, unable to bear weight, limited ROM and pain Triage Nursing Assessment: Pt. A&Ox3, skin P/w/D, pt. using crutches to assist in mobility, Left ankle swelling, tenderness. Limited ROM and unable to bear weight on left ankle. Resp. even unlabored, in NAD. Pulses present in BLE. Cap refill brisk. Physician History: 38-year-old female presented to the ER after she twisted her ankle last night. Patient reports moderate intensity sharp pain with ambulation and difficulty weightbearing. Patient noticed some swelling increasing on the left lateral ankle area. Denies injury anywhere else. No medial malleoli or tenderness. Tenderness lateral malleolus with some swelling around. Distal neurovascular intact. No swelling/tenderness base of fifth metatarsal and proximal posterior distal fibula. She is offered pain medication which she declined. I have obtained x-rays left ankle which are negative for fracture dislocation reviewed by me, official report is pending. I believe patient has ankle sprain, recommended Aircast, weightbearing as tolerated, intermittent ice application, NSAIDs and outpatient follow-up. Discussed signs symptoms of worsening needing return to ER which she seems understanding. Stable for discharge. Allergies/Adverse Reactions: Penicillins Allergy (Verified 09/19/24 14:54) Hives Sulfa (Sulfonamide Antibiotics) Allergy (Verified 09/19/24 14:54) Hives Hx Tetanus, Diphtheria Vaccination/Date Given: No Hx Influenza Vaccination/Date Given: No Hx Pneumococcal Vaccination/Date Given: No Immunizations Up to Date: Yes Travel Risk - International Travel Have you traveled outside of the country in past 3 weeks: No - Emerging Infectious Disease Are you exhibiting symptoms associated with any current EIDs: No - Review of Systems Constitutional: No Symptoms Ears, Nose, & Throat: No Symptoms Respiratory: No Symptoms Cardiac: No Symptoms Abdominal/Gastrointestinal: No Symptoms Musculoskeletal: Injury, Joint Pain, Joint Swelling Skin: No Symptoms Neurological: No Symptoms Endocrine: No Symptoms Hematologic/Lymphatic: No Symptoms - Past Medical History Pertinent Past Medical History: Yes Neurological History: No Pertinent History ENT History: No Pertinent History Cardiac History: No Pertinent History Respiratory History: No Pertinent History Endocrine Medical History: No Pertinent History Musculoskeletal History: No Pertinent History GI Medical History: GERD, Ulcer History: No Pertinent History Psycho-Social History: No Pertinent History, Depression Female Reproductive Disorders: No Pertinent History Other Medical History: HX OF LEFT SHOULDER, ELBOW, AND HAND SURGERIES - Past Surgical History Past Surgical History: Yes Neuro Surgical History: No Pertinent History Cardiac: No Pertinent History Respiratory: No Pertinent History Gastrointestinal: Cholecystectomy Genitourinary: No Pertinent History Musculoskeletal: No Pertinent History Female Surgical History: No Pertinent History Other Surgical History: t & a, uterine ablation,Left shoulder debridement,Left carpal tunnel,Left elbow nerve ? 2 previous colonoscopies. - Female History Hx Last Menstrual Period: 2007 Hx Now: No - Social History Smoking Status: Never smoker How long have you smoked: 1 year Exposure to second hand smoke: Yes Drug Use: none Patient Lives Alone: No - Social Determinants of Health Will the patient participate in the screening: Yes Do you worry about a steady place to live?: No Do you have any problems with any of the following?: No known problems In the past 12 months,have you had to go without utilities?: No Transportation Issues: No Has anyone in your support network made you feel unsafe?: No Have you or anyone in your house had to go without enough: No - Nursing Vital Signs Nursing Vital Signs: Initial Vital Signs Temperature 97.1 F 09/19/24 14:31 Pulse Rate 73 09/19/24 14:31 Respiratory Rate 18 09/19/24 14:31 Blood Pressure 121/77 09/19/24 14:31 O2 Sat by Pulse Oximetry 96 09/19/24 14:31 Pain Scale Pain Intensity 5 - Physical Exam General Appearance: no apparent distress Neck Exam: normal inspection, full range of motion Cardiovascular/Respiratory Exam: normal breath sounds, regular rate/rhythm Hips Exam: bilateral: non-tender, normal inspection, normal range of motion, no evidence of injury Legs Exam: bilateral leg: non-tender, normal inspection, normal range of motion, no evidence of injury Knees Exam: bilateral knee: non-tender, normal inspection, normal range of motion, no evidence of injury Ankle Exam: right ankle: non-tender, normal inspection, normal range of motion, no evidence of injury, left ankle: bone tenderness (Lateral malleolus), pain, soft tissue tenderness, swelling Foot Exam: bilateral foot: non-tender, normal inspection, normal range of motion, no evidence of injury Neuro/Tendon Exam: normal sensation, normal motor functions, normal tendon functions Mental Status Exam: alert, oriented x 3, cooperative Skin Exam: normal color SpO2 Interpretation: normal SpO2: 96 O2 Delivery: Room Air Ordered Tests: Active Orders 24 hr Category Date Time Status ANKLE (3 VIEWS) Stat Exams 09/19/24 14:43 Taken - Progress Progress: unchanged Progress Note: 09/19/24 15:25 38-year-old female presented to the ER after she twisted her ankle last night. Patient reports moderate intensity sharp pain with ambulation and difficulty weightbearing. Patient noticed some swelling increasing on the left lateral ankle area. Denies injury anywhere else. No medial malleoli or tenderness. Tenderness lateral malleolus with some swelling around. Distal neurovascular intact. No swelling/tenderness base of fifth metatarsal and proximal posterior distal fibula. She is offered pain medication which she declined. I have obtained x-rays left ankle which are negative for fracture dislocation reviewed by me, official report is pending. I believe patient has ankle sprain, recommended Aircast, weightbearing as tolerated, intermittent ice application, NSAIDs and outpatient follow-up. Discussed signs symptoms of worsening needing return to ER which she seems understanding. Stable for discharge. Counseled pt/family regarding: diagnosis, need for follow-up, rad results Medical Desision Making - Diagnostic Testing Diagnostic test were ordered, analyzed, and reviewed by me: Yes Radiological Interpretation: Interpreted by me, Reviewed by me - Departure Departure Disposition: Home Clinical Impression: Ankle sprain Condition: Stable Critical Care Time: No Referrals: OWEN LAMA NP [Primary Care Provider] - Follow up with PCP 1 day JENNIFER ANN DPM [ACTIVE STAFF] - Follow up/PCP as directed (Call for appointment for reevaluation.) Instructions: Ankle Sprain ED Additional Instructions: Weightbearing as tolerated, intermittent ice application. Tylenol/ibuprofen as needed for pain. Follow-up with primary care/orthopedics for reevaluation. Return to ER for worsening. Prescriptions: Ibuprofen 600 mg PO Q6HPRN PRN 10 Days #20 tablet PRN Reason: Pain
[2024-09-19 15:34] VITALS: BP 128/76; PULSE 70; TEMP 97.4
--- NOTE | 2024-09-19 21:40 | XRAY ---
Indication: Pain. Impaired mobility. Comparison: None 3 view left ankle demonstrates tiny posterior/plantar heel spurs, mild lateral soft tissue swelling, and incidental navicular accessory ossicle. No other bony, articular, or soft tissue abnormalities.
== END 2024-09-19 15:41 | disposition home or self-care (01) ==
LOC: ED 14:22
DX: S93.402A Sprain of unspecified ligament of left ankle, initial encounter (principal); M25.572 Pain in left ankle and joints of left foot
CPT/HCPCS: 73610; 99283